=== PATIENT | female | born 1960 | race Caucasian/White ===

== ENCOUNTER 2019-12-25 18:31 | Emergency (ER) | payer BC ==
--- NOTE | 2019-12-25 18:39 | UC ---
Respiratory Complaint HPI - HPI Summary HPI Summary: 59 yo female presents with URI symptoms. She tells me that over the last 3 years she has been having worsening asthma issues. Over the last 2 days has developed subjective fever, shortness of breath, increased cough, and body aches. She has been using her inhalers at home with good intermittent relief. She has not been exposed to any known positive COVID. She denies sore throat, sinus symptoms, chest pain, abdominal pain, n/v. She does not smoke or use oxygen. She tells me that her mother 2 days ago after being on hospice for several months and her is tomorrow. Pt is requesting COVID testing this evening. - History of Current Complaint Stated Complaint: ASTHMA, FEVER Time Seen by Provider: 12/25/19 18:38 Hx Obtained From: Patient Onset/Duration: Sudden Onset Severity Initially: Moderate Severity Currently: Moderate Pain Intensity: 5 Pain Scale Used: 0-10 Numeric - Allergies/Home Medications Allergies/Adverse Reactions: Allergies Allergy/AdvReac Type Severity Reaction Status Date / Time Seasonal Allergies Allergy Intermediate Congestion Uncoded 12/25/19 18:48 Home Medications: Home Medications Diazepam TAB(*) [Valium TAB(*)] 5 mg PO TID PRN 06/23/15 [History Confirmed ] Ibuprofen TAB* [Motrin TAB* 800 MG] 600 mg PO Q6H 06/23/15 [History Confirmed ] [place] Carbonate TAB* 1 tab PO TID 12/25/19 [History Confirmed 12/25/19] Methylphenidate TAB* [Ritalin TAB*] 1 tab PO TID 12/25/19 [History Confirmed ] Venlafaxine EXT RELEASE CAP* [Effexor Xr CAP*] 37.5 mg PO BID 12/25/19 [History Confirmed 12/25/19] predniSONE 20 mg TAB [Deltasone 20 MG TAB*] 40 mg PO DAILY #10 tab 12/25/19 [Rx] PMH/Surg Hx/FS Hx/Imm Hx Respiratory History: Asthma Psychological History: Anxiety - Surgical History Surgical History: None - Family History Known Family History: Positive: Cardiac Disease, Hypertension - Social History Lives: With Family Alcohol Use: Occasionally Substance Use Type: None Smoking Status (MU): Never Smoked Tobacco - Immunization History Most Recent Influenza Vaccination: Fall 2013 Most Recent Tetanus Shot: Unknown Review of Systems All Other Systems Reviewed And Are Negative: No Constitutional: Positive: Fever, Fatigue, Other - Body aches Skin: Positive: Negative Eyes: Positive: Negative ENT: Positive: Negative Respiratory: Positive: Shortness Of Breath, Cough Cardiovascular: Positive: Negative Gastrointestinal: Positive: Negative Neurovascular: Positive: Negative Neurological/Mental Status: Positive: Negative Psychological: Positive: Negative Physical Exam - Summary Physical Exam Summary: GENERAL: NAD. WDWN. No pain distress. SKIN: No rashes, sores, lesions, or open wounds. HEENT: Head: AT/NC Eyes: Conjunctiva clear without inflammation or discharge. Ears: Hearing grossly normal. TMs intact, no bulging, erythema, or edema. Nose: Nasal mucosa pink and moist. NTTP maxillary and frontal sinus. Throat: Posterior oropharynx without exudates, erythema, or tonsillar enlargement. Uvula midline. NECK: Supple. Nontender. No lymphadenopathy. CHEST: Moderate wheezing throughout. No r/r. No accessory muscle use. Breathing comfortably and in no distress. CV: RRR. Pulses intact. Cap refill <2seconds NEURO: Alert. PSYCH: Age appropriate behavior. Triage Information Reviewed: Yes Vital Signs: Vital Signs: Temp Pulse Resp BP Pulse Ox 99.2 F 117 18 161/89 94 12/25/19 18:40 12/25/19 18:40 12/25/19 18:40 12/25/19 18:40 12/25/19 18:40 Laboratory Tests 12/25/19 19:00 Influenza A (Rapid) Negative Influenza B (Rapid) Negative Vital Signs Reviewed: Yes Respiratory Course/Dx - Course Course Of Treatment: Exam performed utilizing CDC recommended PPE. Discussed obtaining CXR and giving steroids/duoneb this evening for her likely asthma exacerbation, but pt declined as she is just interested in COVID testing. I discussed with her that I am concerned about her vital signs (subpar O2% and tachycardia) and presentation today and would like to perform a further evaluation, but she continued to decline. I will place her on prednisone for an asthma exacerbation and have her continue to use her inhalers as directed. I had a long discussion with her that if she is tested for COVID today she will be placed on a 2-5 day home isolation while awaiting results. Upon hearing this , she declined COVID testing as she wishes to attend her mother's tomorrow. I strongly encouraged her to reconsider given her presentation today, but she continued to decline. She does have a PCP, thus I told her when she is finished the the to contact her PCP and obtain an order for the drive-through COVID clinic (as she does not want to come back here due to incurring another visit charge) or a PCP visit may be a more cost-effective option. I believe the patient is clinically sober, free from distracting injury, appears to have insight and reasoning and, in my judgment, has capacity to make decisions. I have told the patient if they do not seek further eval/treatment their condition could get much worse, could become critically ill, suffer disability, and possibly . Strongly encouraged to go to the ER if symptoms worsen or if she develops new symptoms. She voiced understanding. - Differential Dx/Diagnosis Provider Diagnosis: Cough, SOB (shortness of breath) Discharge ED - Sign-Out/Discharge Documenting (check all that apply): Patient Departure All imaging exams completed and their final reports reviewed: No Studies - Discharge Plan Condition: Stable Disposition: HOME Prescriptions: predniSONE 20 mg TAB [Deltasone 20 MG TAB*] 40 mg PO DAILY #10 tab Referrals: Betsy Roman MD [Primary Care Provider] - Additional Instructions: I recommend that you wear a mask at all times if outside your home or around others. If your symptoms worsen or change - please go to the ER. I recommend that you follow up with your PCP after the . - Billing Disposition and Condition Condition: STABLE Disposition: Home - Attestation Statements Provider Attestation: This patient was not seen by me. I was available for consult. Chart reviewed. ADDIE
[2019-12-25 19:05] VITALS: BP 161/89
[2019-12-25 19:12] LABS: Influenza A Molecular Negative (Negative); Influenza B Molecular Negative (Negative)
== END 2019-12-25 19:17 | disposition home or self-care (01) ==
LOC: UCEAST 18:31
DX: R05 Cough (principal); R06.02 Shortness of breath; M79.10 Myalgia, unspecified site; F41.9 Anxiety disorder, unspecified; Z79.899 Other long term (current) drug therapy
CPT/HCPCS: 99212; G0463

== ENCOUNTER 2023-03-20 11:39 | Observation (INO) ==
[2023-03-20 13:16] LABS: ABS Eosinophils 0.2 10^3/uL (0.0-0.5); ABS Lymphocytes 1.7 10^3/uL (1.0-4.8); ABS Monocytes 0.7 10^3/uL (0.0-0.9); ABS Neutrophils 8.9 10^3/uL (1.5-7.6); ABS Nucleated RBC 0.01 10^3/ul; Eosinophil % 1.4 %; Hematocrit 42.6 % (35-45); Hemoglobin 14.4 g/dL (11.5-14.3); Lymphocyte % 14.6 %; Mean Corpuscular Hemoglobin 29.9 pg (27-33); Mean Corpuscular Hgb Conc 33.9 g/dL (31-36); Mean Corpuscular Volume 88.4 fL (80-97); Platelet Count 326 10^3/uL (150-450); Red Blood Count 4.82 10^6/uL (3.63-4.92); Red Cell Distribution Width 13.2 % (12-17); White Blood Count 11.3 10^3/uL (3.8-11.8)
[2023-03-20 13:22] LABS: INR 0.99 (0.88-1.18)
[2023-03-20] MEDS ORDERED: Heparin DRIP 25,000 UNITS BAG 25,000 UNITS/500 ML BAG IV SCH (13:45)
[2023-03-20 13:58] LABS: Albumin 4.2 g/dL (3.2-5.2); Albumin/Globulin Ratio 1.3 (1-3); Calcium 9.9 mg/dL (8.6-10.3); Creatinine, Serum 0.62 mg/dL (0.51-0.95); Globulin 3.2 g/dL (2-4); Potassium 4.1 mmol/L (3.5-5.0); Total Bilirubin 0.5 mg/dL (0.2-1.0); Total Protein 7.4 g/dL (6.4-8.9)
[2023-03-20] MEDS ORDERED: Heparin 5000 UNITS/ML 1 mL VIAL IV SCH (14:00)
[2023-03-20] MEDS ORDERED: Midazolam 10 mg/10 ml VIAL 1 mg/ml 10 ml VIAL (10 mg) IV SLOW PU ONE (14:40)
[2023-03-20] MEDS ORDERED: fentaNYL 100 mcg/2 ml 50 MCG/ML VIAL IV SLOW PU ONE (14:40)
[2023-03-20] MEDS ORDERED: Senna TAB 8.6 mg TAB PO PRN (14:45)
[2023-03-20] MEDS ORDERED: Polyethylene Glycol 3350 17 GM PACKET PO PRN (14:45)
[2023-03-20] MEDS ORDERED: Al Hydrox/Mg Hydrox/Simet LIQ 30 ML UDC PO PRN (14:45)
[2023-03-20] MEDS ORDERED: Ondansetron 4 mg VIAL 2 MG/ML 2 ml VIAL IV PRN (14:45)
[2023-03-20] MEDS ORDERED: NS 0.9% 1000 ml BAG 1,000 ML IV SCH ×2 (14:45→17:30)
[2023-03-20 15:07] LABS: High Sensitivity Troponin 1 Hr 3980 pg/mL (<15)
[2023-03-20] MEDS ORDERED: Sulfur Hexaflouride MICROSPHR 25 MG VIAL ONE (15:33)
[2023-03-20] MEDS ORDERED: nitroGLYCERIN DRIP 25,000 MCG/250 ML BTL ONE (16:06)
[2023-03-20] MEDS ORDERED: Lidocaine 1% MPF 5 ML VIAL ONE (16:06)
[2023-03-20] MEDS ORDERED: Midazolam 5 mg/5 ml VIAL 1 mg/ml 5 ml VIAL (5 mg) ONE (16:06)
[2023-03-20] MEDS ORDERED: fentaNYL 100 mcg/2 ml 50 MCG/ML VIAL ONE (16:06)
[2023-03-20] MEDS ORDERED: Heparin 1,000 UNIT/ML 10 ml (10,000 UNITS) CATHLAB/DIALYSIS ONE (16:06)
[2023-03-20] MEDS ORDERED: VERAPAMIL 2.5 MG/ML 2 ML VIAL ** 5 mg/2 ml ONE (16:06)
[2023-03-20] MEDS ORDERED: Iohexol 350 (CONTRAST) 100 ML PAK IV ONE (16:06)
[2023-03-20] MEDS ORDERED: Heparin 2 UNITS/ML 1000 mls 2,000 ML IV ONE (16:07)
[2023-03-20] MEDS ORDERED: Bivalirudin 250 MG VIAL ONE (16:45)
[2023-03-20] MEDS ORDERED: Iohexol 350 (CONTRAST) 200 ML MDV IV ONE (16:51)
[2023-03-20] MEDS ORDERED: nitroGLYCERIN DRIP 25,000 MCG/250 ML BTL IV SCH (18:00)
[2023-03-20] MEDS ORDERED: CMCS: Lithium Carb ER 300 mg TAB(NF) PO SCH (21:00)
[2023-03-20 21:28] VITALS: BP 134/73
[2023-03-21] MEDS ORDERED: Methylphenidate ER 18 mg TAB PO SCH (09:00)
[2023-03-21] MEDS ORDERED: Venlafaxine XR 75 mg PO SCH (09:00)
[2023-03-24 23:55] LABS: Anaplasma phagocytophilum Negative (Negative); B. miyamotoi PCR, B Negative (Negative); Babesia divergens/MO-1 Negative (Negative); Babesia ducani Negative (Negative); Ehrlichia chaffeensis Negative (Negative); Ehrlichia ewingii/canis Negative (Negative); Ehrlichia muris eauclairensis Negative (Negative)
== END 2023-03-20 21:04 | disposition short-term general hospital (02) ==
LOC: EDHOLD 11:39 → ED 11:39 → CHICARD 15:05 → ICU 15:09 → INTOOBSV 17:49 → ICU 17:49
PROVIDERS: ATTEND Internal Medicine